=== PATIENT | female | born 1950 | race Caucasian/White ===

== ENCOUNTER → 2019-05-12 | Outpatient (CLI) | payer OTHER, SELFPAY ==
--- NOTE | 2019-05-12 13:30 | SP.MBSS_ITS ---
PRIMARY / SECONDARY DIAGNOSIS: dysphagia (R13.12) REFERRING PHYSICIAN: Dr. Matthieu Hansen MD CURRENT DIET: regular-soft textures, thin liquids DENTITION: WFL MENTAL STATUS: WNL RESPIRATORY STATUS: O2 via room air REASON FOR REFERRAL: The Patient is a 69 year old female referred for a modified barium swallow (MBS) study to objectively assess the Patients oropharyngeal swallow function under fluoroscopy secondary to the diagnosis of progressive bulbar palsy / amyotrophic lateral sclerosis. MEDICAL HISTORY: Amyotrophic lateral sclerosis / progressive bulbar palsy, recurrent urinary tract infections, gastroesophageal reflux disease, seasonal allergies. PREVIOUS MODIFIED BARIUM SWALLOW STUDY: None. ASSESSMENT PARAMETERS: The Patient participated in a Modified Barium Swallow (MBS) study on 05/12/2019. Dr. Garza was the radiologist present for this evaluation. This study was recorded in the lateral view and images were sent to PACs for storage. Scoring was completed through each trial using the 8-point Penetration-Aspiration Scale (PAS), and summarized via the Modified Barium Swallow Impairment Profile (MBSImP) and the Bolus Residue Scale (BRS), with severity scoring through the Dysphagia Severity Rating Scale (DSRS), the Swallowing Performance Scale (PSP), and the Austyn ALS Severity Scale (ALSSS), and recommended diet textures through the International Dysphagia Diet Standardisation Initiative (IDDSI). RESULTS OF THE EVALUATION: The Patient presents with mild oropharyngeal dysphagia (DSRS: 2; SPS: 3; ALSSS: 6-7) secondary to the diagnosis of amyotrophic lateral sclerosis. OBJECTIVE ASSESSMENT OF SWALLOW FUNCTION (QUANTITATIVE ? PER TRIAL): PENETRATION / ASPIRATION SCALE (HYATT): 1 = does not enter airway 2 = enters airway/above vocal folds/ejected 3 = enters airway/above vocal folds/not ejected 4 = enters airway/contacts vocal folds/ejected 5 = enters airway/contacts vocal folds/not ejected 6 = enters airway/below vocal folds/ejected 7 = enters airway/below vocal folds/not ejected despite effort 8 = enters airway/below vocal folds/no effort PENETRATION / ASPIRATION SCALE (SCORE): Thin liquids via cup (single sip): 1 Thin liquids via cup (single sip): 1 Thin liquids via cup (single sip): 1 Thin liquids via cup (sequential swallows): 1 Pudding via spoon: 1 Regular textured cookie: 1 Thin liquids via straw (single sip): 1 Thin liquids via straw (single sip): 1 Thin liquids via straw (sequential swallows): 1 OBJECTIVE ASSESSMENT OF SWALLOW FUNCTION (QUANTITATIVE ? AGGREGATE): MODIFIED BARIUM SWALLOW IMPAIRMENT PROFILE (MBSImP) LABIAL SEAL: 0 (of 4) no labial escape TONGUE CONTROL: 0 (of 3) cohesive bolus BOLUS PREPARATION / MASTICATION: 1 (of 3) slow prolonged; complete recollection BOLUS TRANSPORT / LINGUAL MOTION: 0 (of 4) brisk tongue motion ORAL RESIDUE: 2 (of 4) residue collection on oral structures INITIATION OF PHARYNGEAL SWALLOW: 1 (of 4) valleculae SOFT PALATE ELEVATION: 1 (of 4) trace column between soft palate & pharyngeal wall LARYNGEAL ELEVATION: 1 (of 3) partial superior movement / approximation ANTERIOR HYOID EXCURSION: 1 (of 2) partial movement EPIGLOTTIC MOVEMENT: 0 (of 2) complete inversion LARYNGEAL VESTIBULE CLOSURE: 0 (of 2) complete closure PHARYNGEAL STRIPPING WAVE: 1 (of 2) present / diminished PE SEGMENT OPENIN (of 3) partial distension / duration / obstruction TONGUE BASE RETRACTION: 2 (of 4) narrow column of contrast PHARYNGEAL RESIDUE: 1 (of 4) trace residue ESOPHAGEAL BOLUS CLEARANCE: could not view BOLUS RESIDUE SCALE (BRS): 2 (of 6) residue in valleculae DYSPHAGIA SEVERITY RATING SCALE (DSRS): 2 (mild) SWALLOWING PERFORMANCE SCALE (SPS): 3 (mild) AUSTYN ALS SEVERITY SCALE (ALSSS): 6-7 (of 10) OBJECTIVE ASSESSMENT OF SWALLOW FUNCTION (QUALITATIVE): ORAL PREPARATORY PHASE: mild (albeit effective) mastication inefficiency with prolonged mastication; sufficient anterior oral containment during presentation / manipulation (contrast present due to clinician during presentation); preserved management of breathing / bolus formation without disrupted E ? S ? E pattern. ORAL TRANSITIONAL PHASE: fragmented swallowing (piecemeal deglutition), no additional transitional incompetence; suboptimal oral clearance with thicker viscosities without side specific consolidation; sufficient oral containment across textures; PHARYNGEAL PHASE: no clinically significant signs of pharyngeal dyssynchrony; sufficient hyolaryngeal excursion; no signs of pharyngeal dysmotility; mild velopharyngeal insufficiency without nasoregurgitation. ESOPHAGEAL PHASE: no obvious esophageal phase abnormalities observed. DYSPHAGIA ASSOCIATED MEDICAL CONSIDERATIONS / INTERVENTION CONSIDERATIONS: Would consider scheduled repeat objective assessments of the oropharyngeal swallow function under fluoroscopy (~ 6 month intervals) to identify changes in the oropharyngeal swallow function associated with amyotrophic lateral sclerosis due to the rapid progressive nature of the disease and its damaging effects to the swallow mechanism, with a higher proclivity for silent aspiration. Would consider the Patient to be at a higher risk of aspiration related medical complications / aspiration pneumonia / aspiration related pulmonary syndrome secondary to the diagnosis of amyotrophic lateral sclerosis. At this time, I would also counter that you could consider the Patient to be at lower risk of aspiration related medical complications secondary to her excellent oral hygiene, overall awareness with all deficits self-reported, and currently maintained ambulatory status. As the disease progresses, the Patient would be considered to be a high risk for malnutrition and dehydration due to anticipated oral and eventual pharyngeal phase impairments resulting in continued reduced rate of intake, poor oral control and concomitant anterior fluid loss, in combination with anticipated fatiguing of the swallow structures during intake. The Patient may require intervention to reduce the risk of malnutrition, with considerations for food enrichment, more frequent meals (to combat the fatigue affect typically identified with amyotrophic lateral sclerosis) oral nutritional supplementation, and will eventually need to consider alternative means of nutrition. Would strongly consider a referral to a registered clinical dietitian early in the disease process. INTERVENTION RECOMMENDATIONS AND CONSIDERATIONS: The Patient requires continued skilled speech-language intervention targeting diet texture management and training / implementation of recommended compensatory strategies; and Patient / caregiver education regarding dysphagia associated with amyotrophic lateral sclerosis. POST ASSESSMENT EDUCATION: Results and recommendations were discussed with the Patient and Patients family immediately following MBS completion, with the Patient and Patients family verbalizing understanding and agreement with all recommendations and education provided. We discussed factors impacting effects of aspiration, to include: the quantity of aspiration, the depth of aspiration (trachea or distal airways), and the physical properties of the aspirate. We discussed consequences of oropharyngeal dysphagia, to include pulmonary complications from tracheobronchial aspiration; potential for airway obstruction / asphyxiation; inadequate oral intake because of dysphagia; reduced liquid intake resulting in dehydration; reduced caloric intake resulting in unintentional and potentially medically complicating loss of weight; possible impairment in mental and physical condition; and possible complications in overall course of care with increased risk for mortality / . We discussed benefits and risks associated with alternative means of nutrition, with increased access to caloric supplementation and reduce hydration deficits, in addition to possible reduction in stress associated with mealtimes; though gastrostomy feeding does not significantly reduce aspiration risk and may lead to reduced quality of life, disrupted sleep patterns, and stoma site infections. I provided brief overview of signs and symptoms of aspiration, with recommendations for the Patient to further discuss symptoms with this clinician, and / or the Patients medical team / primary care provider. DIET TEXTURE RECOMMENDATIONS: Will recommend a regular ? soft textured (IDDSI: 6), thin liquid diet (IDDSI: 0) diet RECOMMENDED COMPENSATORY STRATEGIES: Consider cutting tougher textures into bite sized pieces, reduced bolus volume / rate of ingestion, liquid chaser at reasonable intervals, seated upright at 90 degrees during PO intake, remain upright for 30-60 minutes post meal (GERD precaution), medications one at a time with a liquid chaser. IMAGE COUNT: [id number] Reese aSndoval M.A., CCC-AGRICULTURE SCIENTIST MBSImP Certified, LSVT Certified [facility] Speech-Language Pathology Department [email or web address]
--- NOTE | 2019-05-12 13:33 | RAD_ITS ---
STUDY: SWALLOWING STUDY REASON FOR EXAM: Female, 69 years old. Dysphagia TECHNIQUE: The examination was performed with Speech Pathology in attendance. Under fluoroscopic observation, the patient ingested thin barium, thick barium, barium pudding, and barium coated cracker. FLUOROSCOPY TIME: 1:50 minutes/seconds RADIOLOGIST INVOLVEMENT: Radiologist was present during the procedure, and did review the images. COMPARISON: None. FINDINGS: The following was observed during swallowing of the various mixtures of barium: Thin Barium: There was no evidence of aspiration or laryngeal penetration. Thick Barium: There was no evidence of aspiration or laryngeal penetration. Barium Pudding: There was no evidence of aspiration or laryngeal penetration. Barium Coated Cracker: There was no evidence of aspiration or laryngeal penetration. RAD/Swallowing Function w/Video IMPRESSION: Normal tailored barium swallow study. No evidence of increased risk for aspiration. The swallow study findings were discussed with the patient by the speech pathologist at the conclusion of the examination. Please see speech pathology report for more information and recommendations. The procedure was performed by Reese Rivera speech therapist. Electronically Signed: Juan Garza MD at 14:35 EDT , Service support ,
== END | disposition home or self-care (01) ==
LOC: RAD 13:10
PROVIDERS: Family Provider Family Medicine; PCP Family Medicine; Referring Provider Psychiatry & Neurology Neurology; Visit Provider Psychiatry & Neurology Neurology
DX: R47.1 Dysarthria and anarthria (principal); R13.10 Dysphagia, unspecified
CPT/HCPCS: 74230; 92611

== ENCOUNTER 2019-09-21 10:00 | Outpatient (RCR) | payer MEDICARE, OTHER, SELFPAY ==
--- NOTE | 2019-04-06 09:00 | SOAP_ITS ---
REASON FOR REFERRAL: The Patient is a 69 year old female referred for a clinical assessment of the swallow function and communication profile at [facility] on 04/06/[address] Matthieu Hansen due to progressive bulbar palsy / amyotrophic lateral sclerosis. The Patient reports initial symptom onset occurring last August (2017), with noted unexplained dysarthria, with official diagnosis towards the latter portions of last month (February 2019). The Patient reports occasional coughing during ingestion, particularly with thin liquids. She additionally reports concern with ingestion of solid textures, and self imposes reduced bolus volumes to combat this concern. She further reports fatigue with intake (inanition), with uptake in symptomology towards the latter portions of meals (not uncommon with the diagnosis). She reports a gradual unintentional weight loss (though unsure as to amount), though no changes in appetite or early satiety; no nausea or emesis; no percutaneous endoscopic gastrostomy (PEG) tube placement to date. She denies trismus or odynophagia. She reports mild xerostomia in addition to mild diurnal sialorrhea (SSS:2) that has been increasing in regards to frequency. She denies any dysgeusia / hypogeusia / ageusia or hyposmia. She denies issues with globus sensation, reflux, or substernal discomfort. She denies suboptimal intake behaviors (tachyphagia, bolus bolting, or aerophagia). She denies any current or previous issues with aspiration related pulmonary complications, to include pneumonia, bronchitis, or unexplained asthma symptoms. 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 MEDICAL HISTORY: Amyotrophic lateral sclerosis / progressive bulbar palsy, recurrent urinary tract infections, gastroesophageal reflux disease, seasonal allergies, PREVIOUS MODIFIED BARIUM SWALLOW STUDY: None. ORAL MOTOR / MODIFIED CRANIAL NERVE ASSESSMENT: CNV, VII, IX, X, and XII grossly intact. Natural upper / lower dentition in sufficient repair. Mild xerostomia; occasional diurnal sialorrhea (SSS: 2). Impaired cough intensity (dystussia). No signs or symptoms of trismus. Reduced rate of speech with mild to moderate dysarthria. FUNCTIONAL STATUS ASSESSMENT RESULTS: Karnofsky Performance Scale Index: 6/6 (independent) [place] ? [facility] Instrumental Activities of Daily Living Scale (IADL): 8/8 (independent) Patient Health Questionnaire (PHQ-9): 6 (indicating mild risk of depression) SUPPLEMENTARY DYSPHAGIA ASSESSMENT RESULTS (QUANTITATIVE): Eating Assessment Tool ? 10 (EAT-10): 16 (>15 or higher 2.4x more likely to aspirate) Reflux Symptom Index (RSI): 25 (>13 may be indicative of significant reflux) Sialorrhea Scoring Scale (SSS): 2/9 (mild, only the lips are wet, occasionally) CLINICAL ASSESSMENT OF SWALLOW FUNCTION (QUANTITATIVE): Repetitive Saliva Swallowing Test (RSST): Pass; > 2 dry swallows within 30 seconds. Modified Water Swallowing Test (MWST): Normal - 5 (of 5) 1oz (30mL) Water Swallowing Test (1oz WST): Normal ? 1 (of 5) 3oz (90mL) Water Swallow Test (3oz WST): Abnormal; Coughing after deglutition Kruger Assessment of Swallowing Ability (MASA): 163 (moderate) MASA Aspiration Severity Score: 163 (mild) MASA Dysphagia Risk Rating: Definite; strong evidence for disorder Swallowing Performance Scale (PSP): 5 (moderate) CLINICAL ASSESSMENT OF SWALLOW FUNCTION (QUALITATIVE): ORAL PREPARATORY PHASE: competent bolus manipulation without fragmented swallowing (piecemeal deglutition), though self-imposed reduction in bolus volume; sufficient anterior oral containment; preserved management of breathing / bolus formation without disrupted E ? S ? E pattern. ORAL TRANSITIONAL PHASE: reduced rate of bolus manipulation / transportation without tremor / undulations; suboptimal oral clearance without side specific consolidation; no signs or symptoms of premature posterior bolus loss. PHARYNGEAL PHASE: reduced hyolaryngeal excursion upon digital palpation suggestive of suboptimal laryngeal vestibule closure / pressure; consistent prominent audible swallow suggestive of pharyngeal swallow delay / dyssynchrony; no subjective signs of pharyngeal dysmotility; mild hypernasality that may suggest velopharyngeal insufficiency; post prandial coughing / throat clearing indicative of overt aspiration during trials of thin liquids (one occasion; approximately 20 seconds post deglutition). ESOPHAGEAL PHASE: esophageal phase appears unremarkable, though high RSI score reported (25) COGNITIVE COMMUNICATION ASSESSMENT RESULTS: Quick Aphasia Battery (QAB): Motor speech features: Dysarthria: 2 (moderate) Apraxia of Speech: 4 (normal) Aphasia Severity Rating Scale (ASRS): 5 (Minimal; may have subjective difficulties) Apraxia of Speech Rating Scale (ASRS-v1): 0 (not present) COGNITIVE LINGUISTIC FUNCTIONING: moderate dysarthria with mild hypernasality; no aphasia, apraxia, anomia, agraphia, or alexia noted. Mild bradyphrenia and attention deficits. Otherwise unremarkable. RESULTS OF THE EVALUATION: Clinical dysphagia evaluation completed this date, with the Patient presenting with moderate oropharyngeal dysphagia in combination with moderate dysarthria secondary to the diagnosis of amyotrophic lateral sclerosis. RECOMMENDATIONS: I cannot definitively rule out silent aspiration at bedside, with the Patient considered to be at a much higher risk of silent aspiration across all consistencies given the diagnosis and progression of amyotrophic lateral sclerosis. The Patient requires further assessment of the oropharyngeal swallow function under fluoroscopy given the etiology of cause, and very high likelihood for pharyngeal and nasopharyngeal based deficits. This will additionally provide an excellent opportunity for biofeedback through the images obtained to further educate the Patient and family as to the extent of deficits she is experiencing. The Patient requires intensive skilled speech- language intervention targeting diet texture management and training / implementation of recommended compensatory strategies; training and implementation of a home oral care protocol to reduce the effects of xerostomia and improve / maintain the integrity of the oral mucosa reducing the risk of aspiration related pulmonary complications; training, implementation, and Patient / caregiver education regarding implementation of the Roberts Free Water Protocol (FFWP); Patient education regarding amyotrophic lateral sclerosis and associated dysphagia and dysarthria; Patient and caregiver training targeting meal preparation / thickened liquid preparation; Patient education and training regarding use of AAC communication devices; Patient education regarding expressive communication strategies to promote improved speech intelligibility (guarded prognosis); with goal adjustment pending MBS completion. I discussed factors impacting effects of aspiration, to include the quantity of aspiration, the depth of aspiration (trachea or distal airways), and the physical properties of the aspirate. We discussed the potential consequences of oropharyngeal dysphagia, to include pulmonary complications from tracheobronchial aspiration; potential for airway obstruction / asphyxiation; potential and currently experienced inadequate oral intake because of dysphagia; reduced liquid intake resulting in dehydration; reduced caloric intake resulting in unintentional and potentially medically complicating loss of weight; impairment in mental and physical condition, and increased risk for mortality / . We discussed potential complicating factors with nutritional management and dysphagia, and discussed that decisions to commence enteral tube feeding should be carefully balanced against the individual?s known wishes and impact on his / her quality of life. We discussed the benefits and risks associated with alternative means of nutrition, with increased access to caloric supplementation and reduce hydration deficits, in addition to possible reduction in stress associated with mealtimes, though gastrostomy feeding does not significantly reduce aspiration risk and may lead to reduced quality of life. DIET TEXTURE RECOMMENDATIONS: Will recommend a regular ? soft textured (IDDSI: 6), thin liquid diet (IDDSI: 0) diet RECOMMENDED COMPENSATORY STRATEGIES: Reduced bolus volume / rate of ingestion, seated upright at 90 degrees during PO intake, remain upright for 30-60 minutes post meal (GERD precaution), medications one at a time with a liquid chaser. FUNCTIONAL OUTCOMES: OUTCOME 1: the Patient will tolerate the least restrictive means of nutrition to facilitate adequate hydration / nutrition with optimum safety and efficiency of swallowing function during P.O. intake without overt signs and symptoms of aspiration. OUTCOME 2: the Patient will demonstrate and utilize recommended compensatory swallowing techniques to facilitate improved airway protection and decreased risk for aspiration during PO intake. OUTCOME 3: the Patient will participate in a Modified Barium Swallow (MBS) study to objectively assess the Patient?s oropharyngeal swallowing function, to determine the least restrictive means of nutrition, to objectively assess the effectiveness of previously identified strategies / precautions, and to identify appropriate intervention approaches / strategies to implement during treatment sessions at the supervised level. OUTCOME 4: the Patient will independently demonstrate and utilize recommended compensatory articulation techniques (increased vocal intensity, reduced rate of speech) to facilitate increased expressive communication abilities in the home and social environments. OUTCOME 5: the Patient will participate in continual assessment of the communication profile to determine the appropriateness for alternative and augmentative communication device implementation at the supervised level OUTCOME 6: goal adjustment as needed post MBS Reese Sandoval M.A., CCC-PROGRAMMER OR ANALYST MBSImP Certified, LSVT Certified [facility] Speech-Language Pathology Department [email or web address]
--- NOTE | 2019-04-19 10:58 | HP.PTEVAL ---
Patient's Visit Information MERYL CARRIZALES is a 69 year old F referred to Physical Therapy by Matthieu Hansen MD with a diagnosis of BUlbar palsy. Date of Evaluation: 03/30/19 Physical Therapist: Dave Foster DPT - Visit Plan Frequency: 1-2x /Week Duration: 4-6 Weeks Plan: Start with BUE and BLUE strengthneing. Add in core stability exercises and endruance progressing including walking program. Add in balance training with progression fo HEP. - Subjective Findings: Pt. is here today for her initial evaluation with diagnosis of upper and lower extremity weakness with recent diagnosis of bulbar palsy. Pt. reports over the past few months noticing increased weakness in both upper and lower extermities. Pt. denies N/T in extremities x4. Pt. jerome reports chronic fatigue now. She walks without AD, but reports being able to ambulate limited distaces secondary to fatigue. Pt. is also having increased difficulty with speech and swallowing. Pt. is to have a swallow study as well. Pt. denies pain. Pt. is hopeful to get an exercise program to increase overall strength in order to stay mobility and increase tolerance to activities. - Objective POSTURE: Pt. has overall slouched posture. Pt. has FH posture. With BERNADETTE noted instance. PALPATION: Pt. has no pain with palption of BLEs and UEs. NEURO: Pt. has normal sensation and DTR of BUE and BLEs. ROM: pt. has good ROM throughout bilateral UEs and LEs, decreased active overhead shoulder ROM, secondary to increased weakness. Pt. has full ROM of Bilatearl LEs. Tight HS and hip flexors bilaterally. MMT: BLES- 4/5 throughout; except hip flexion 4-/5, abd 3+/5, ext 4/5. UE- wrist and elbow- 4+/5 throghout; shoulder- flexion 4/5, abd 4/5, ext 4+/5. GAIT: Pt. is able to ambulate without AD, but has increased fatigue after ~500ft. Pt. required sitting rest break. pt. has increased lateral sway without LOB. - Balance Scores Functional Gait Assessment Score: 21 % Disability: 30.0000 - Goals Goal 1:: Pt. to be I with HEP. Goal Time Frame: 4-6 Weeks Goal 2:: Pt. to have increased UE strength by 1/2 grade. Goal Time Frame: 4-6 Weeks Goal 3:: Pt. to have incerased BLE strength and core strength by 1/2 grade. Goal Time Frame: 4-6 Weeks Goal 4:: Pt. to have increased endurance with walking upto 1000' allowing for increasd tolerance to ambulation in grocery stores. Goal Time Frame: 4-6 Weeks Goal 5:: Pt. to complete all ADLs with out increase in symptoms and increased tolerance. Goal Time Frame: 4-6 Weeks Goal 6:: Pt. to have increased FGA to 23/30 indicating reduce risk for future falls. Goal Time Frame: 4-6 Weeks - Rehabilitation Potential Physical Therapy Diagnosis: Pt. has signs and symptoms consistent with bulbar palsy and marked UE and LE weakness. Pt. would benefit from PT to increase extremity and core strength, stability with gait. Rehabilitation Potential: Good - Anticipated Interventions Patient/Client Instruction: Educate patient on: Condition, Plan of Care, Risk Factors, Benefits of Fitness Program For the Purpose of:: To improve decision making, To facilitate caregiver knowledge, To improve self management, To prevent re-injury, To improve ability to perform tasks related to life management, To improve tolerance to ADL's Therapeutic Exercise to Include: Strength training, Power training, Endurance training, Balance training, Body mechanics, Postural training, Flexibilty training, Dynamic Lumbar Stabilization For the Purpose of:: To improve nutrient delivery to tissue, To increase oxygenation perfusion, To increase tolerance to activity/condition/position, To improve performance and independence with ADL's, To improve ability of physical actions for home/community/work/leisure, To improve gait and locomotor functions, To improve health of tissue, To decrease soft tissue restriction, To increase flexibility/ROM, To improve endurance, To improve balance Thank you for the opportunity to evaluate your patient. For Medicare and Medicare HMO plans, please review the plan of care and approve it. It will need to be FAXED BACK to us at [phone] for Medicare purposes. For Medicare only, by signing this I certify the plan of care. Please let me know if there are questions or concerns regarding this plan of care. Physician Signature: Date:
--- NOTE | 2019-05-08 14:05 | HP.PTREVAL ---
Matthieu Hansen MD, It has been my pleasure to treat MERYL CARRIZALES over the last 8 visits for Bulbar palsy. Please see the progress note below for an update on the physical therapy plan of care! Subjective: Pt. contines to slowly progress with PT. With both UE and LE strengthening. Pt. reports continued fatigue, but is slowly progressing. Pt. reports no pain pre treatment this date. Objective/Function: Pt. tolerated all PT this date. ROM- normal throughout. MMT: UE 4+/5 throughout, except shoulder abd and flexion 4/5, pt. has increased difficutly with over head motions. BLE 4+/5 throughout. GAIT: Pt. has improved stability with ambulatuion. Pt. was able to ambulate 750' without AD. Pt. reports increased fatigue towards end of walking, butother than that no issues. FGA Plan Plan: Pt. would benefit from continued PT, weaning more to indepenent HEP as tolerated. x1-2 per week for 2-3 weeks. Cont to focus on UE and LE strengthening wtih balance and endurance components. Goals Goal 1:: Pt. to be I with HEP. Goal Time Frame: 4-6 Weeks Goal Progress: Progressing Goal 2:: Pt. to have increased UE strength by 1/2 grade. Goal Time Frame: 4-6 Weeks Goal Progress: Progressing Goal 3:: Pt. to have incerased BLE strength and core strength by 1/2 grade. Goal Time Frame: 4-6 Weeks Goal Progress: Progressing Goal 4:: Pt. to have increased endurance with walking upto 1000' allowing for increasd tolerance to ambulation in grocery stores. Goal Time Frame: 4-6 Weeks Goal Progress: Progressing Goal 5:: Pt. to complete all ADLs with out increase in symptoms and increased tolerance. Goal Time Frame: 4-6 Weeks Goal Progress: Progressing Goal 6:: Pt. to have increased FGA to indicating reduce risk for future falls. Goal Time Frame: 4-6 Weeks Goal Progress: Progressing Anticipated Interventions Patient/Client Instruction: Educate patient on: Condition, Plan of Care, Risk Factors, Benefits of Fitness Program For the Purpose of:: To improve decision making, To facilitate caregiver knowledge, To improve self management, To prevent re-injury, To improve ability to perform tasks related to life management, To improve tolerance to ADL's Therapeutic Exercise to Include: Strength training, Power training, Endurance training, Balance training, Body mechanics, Postural training, Flexibilty training, Dynamic Lumbar Stabilization For the Purpose of:: To improve nutrient delivery to tissue, To increase oxygenation perfusion, To increase tolerance to activity/condition/position, To improve performance and independence with ADL's, To improve ability of physical actions for home/community/work/leisure, To improve gait and locomotor functions, To improve health of tissue, To decrease soft tissue restriction, To increase flexibility/ROM, To improve endurance, To improve balance Please do not hesitate to contact me at [phone] by phone or if you have questions or concerns regarding this new plan of care! Sincerely, Dave Foster DPT
--- NOTE | 2019-08-03 10:00 | RE_ITS ---
REASON FOR REFERRAL: The Patient is a 69 year old female referred for a clinical assessment of the swallow function and communication profile at [facility] on 04/06/[address] Matthieu Hansen due to progressive bulbar palsy / amyotrophic lateral sclerosis. The Patient has participated in 10 skilled speech-language intervention sessions from 04/06/2019 to 08/03/2019 primarily targeting diet texture management and training / implementation of recommended compensatory strategies; training and implementation of a home oral care protocol to reduce the effects of xerostomia and improve / maintain the integrity of the oral mucosa reducing the risk of aspiration related pulmonary complications; Patient education regarding amyotrophic lateral sclerosis and associated dysphagia and dysarthria; and Patient education regarding expressive communication strategies to promote improved speech intelligibility (guarded prognosis). The Patient reports continued occasional coughing during ingestion, particularly with thin liquids, though this has been somewhat mitigated with ingestion via narrow boar straw and slight chin tuck posture / anterior lean execution. She reports a continual decline in mastication efficiency (prolonged) and bolus transfer (states solids and semisolids will occasionally ?sit? at the back of her tongue) in addition to continually evolving fatigue with intake (inanition). She reports a gradual unintentional weight loss (though no more than 5lbs over the last month), with a gradually decrease in appetite; no nausea or emesis; no percutaneous endoscopic gastrostomy (PEG) tube placement to date, though is aware that this may need to be addressed in the near future. She has noticed a continual decline in speech intelligibility, with her and other familiar communication partners needing to ask her for repetition at a more consistent basis. At this point, she remains independent for the majority of ADLs and IADLs, completing all though completion has been gradually becoming more and more difficult, and is consulting with a home care agency ([facility]) to provide further assistance in addition to that provided by her . She has experienced multiple falls over the past few months, and now requires use of an assistive device (walking cane) to ambulate, though can ambulate level surfaces at a functional level (able to ambulate the entirety of [facility]). MEDICAL HISTORY: Amyotrophic lateral sclerosis / progressive bulbar palsy, recurrent urinary tract infections, gastroesophageal reflux disease, seasonal allergies, PREVIOUS MODIFIED BARIUM SWALLOW STUDY: 05/12/2019 MBS revealed mild oropharyngeal dysphagia (DSRS: 2; SPS: 3; ALSSS: 6-7) secondary to the diagnosis of amyotrophic lateral sclerosis. ORAL MOTOR / MODIFIED CRANIAL NERVE ASSESSMENT: CNV, VII, IX, X, and XII appear grossly intact, though rather diminished. She denies hypoesthesia. Natural upper / lower dentition in good repair. Atrophic appearance to the lingual blade with a small abrasion along the right anterior blade (reports she has been biting her tongue quite frequently); She appears to have developed oral candidiasis along the lingual blade, she is to follow up with her physician during her upcoming follow up appointment (08/07/2019); mild xerostomia; occasional diurnal sialorrhea (SSS: 4) with intermittent coughing / throat clearing on oral secretions suggesting aspiration of said secretions. Impaired cough intensity (dystussia); no signs or symptoms of trismus; reduced rate of speech with moderate to marked dysarthria with hypernasality and developing hypophonia. FUNCTIONAL STATUS ASSESSMENT RESULTS: Kamara Index of [place] in Activities of Daily Livin/6 Bathin Dressin Toiletin Transferrin Continence: 1 Feedin Melida ? [place] Instrumental Activities of Daily Living Scale (IADL): 7/8 Ability to Use Telephone: 1 Shoppin Food Preparation: 1 Housekeepin Laundry: 0 Mode of Transportation: 1 Responsibility for Own Medications: 1 Ability to Handle Finances: 1 Functional Ambulation Category (FAC): 4 (independent - level surfaces only) SUPPLEMENTARY DYSPHAGIA ASSESSMENT RESULTS (QUANTITATIVE): Eating Assessment Tool ? 10 (EAT-10): 27 (> 15 suggests 2.4x more likely to aspirate) Reflux Symptom Index (RSI): 32 (>13 may be indicative of significant reflux) Sialorrhea Scoring Scale (SSS): 4/9 (moderate, wet on the lips and chin, occasionally) CLINICAL ASSESSMENT OF SWALLOW FUNCTION (QUANTITATIVE): Repetitive Saliva Swallowing Test (RSST): Pass; > 2 dry swallows within 30 seconds. 1oz (30mL) Water Swallowing Test (1oz WST): Heightened suspicion ? 2 (of 5) 3oz (90mL) Water Swallow Test (3oz WST): Abnormal; Coughing after deglutition Kruger Assessment of Swallowing Ability (MASA): 157 (moderate) MASA Aspiration Severity Score: 157 (mild) MASA Dysphagia Risk Rating: Definite; strong evidence for disorder Swallowing Performance Scale (PSP): 5 (moderate) CLINICAL ASSESSMENT OF SWALLOW FUNCTION (QUALITATIVE): ORAL PREPARATORY PHASE: mild (albeit effective) mastication impairments with prolonged mastication; impaired anterior bolus containment with intermittent anterior bolus loss with thin liquid ingestion via cup; preserved management of breathing / bolus formation without disrupted E ? S ? E pattern. ORAL TRANSITIONAL PHASE: slowed bolus manipulation / transportation with occasional fragmented swallowing (piecemeal deglutition); mild to moderate diffuse oral residue post deglutition with sufficient oral clearance following liquid chaser; no signs or symptoms of premature posterior bolus loss. PHARYNGEAL PHASE: mild reduction in hyolaryngeal excursion and duration upon digital palpation possibly suggestive of suboptimal laryngeal vestibule closure / pressure / duration; intermittent / prominent audible swallow possibly suggestive of pharyngeal swallow delay / dyssynchrony; occasional multiple swallows during trials of smaller / rather manageable bolus volumes suggestive of pharyngeal dysmotility; hypernasality suggestive of velopharyngeal insufficiency without nasoregurgitation; post prandial coughing / throat clearing indicative of overt aspiration during trials of thin liquids and nectar thickened liquids (somewhat ameliorated with ingestion via straw with slight anterior lean); no further signs or symptoms of penetration / aspiration throughout trials. ESOPHAGEAL PHASE: esophageal phase appears unremarkable though noted high and progressively increasing RSI score reported (32) COMPLICATING FACTORS AND NOTABLE FINDINGS: complicating factors include the Patients continued decline in regards to intake endurance, with meals currently limited to ~20-25 minutes (this is more limiting when considering the reduced rate of mastication / ingestion she has demonstrated and reported). COGNITIVE COMMUNICATION ASSESSMENT RESULTS: COGNITIVE LINGUISTIC FUNCTIONING: moderate to marked dysarthria with mild hypernasality and increasing presence of hypophonia; no aphasia, apraxia, anomia, agraphia, or alexia noted. Mild bradyphrenia and attention deficits. Otherwise unremarkable. RESULTS OF THE EVALUATION: The Patient continues to present with moderate oropharyngeal dysphagia in combination with moderate to marked dysarthria secondary to the diagnosis of amyotrophic lateral sclerosis. DYSPHAGIA ASSOCIATED MEDICAL CONSIDERATIONS / INTERVENTION CONSIDERATIONS: The Patient will likely require a repeat assessment of the oropharyngeal swallow function under fluoroscopy within the next 2-3 months given the etiology of cause, and very high likelihood of increased pharyngeal and nasopharyngeal based deficits that require objective imaging to fully quantify and develop an effective remedial plan. She is further nearing the point in which we will need to explore transitioning to an augmented approach to communication, as her current communication efficiency is fleeting. INTERVENTION RECOMMENDATIONS: The Patient requires continued intensive skilled speech-language intervention targeting diet texture management and training / implementation of recommended compensatory strategies; training and implementation of a home oral care protocol to reduce the effects of xerostomia and improve / maintain the integrity of the oral mucosa reducing the risk of aspiration related pulmonary complications; training, implementation, and Patient / caregiver education regarding implementation of the [place] Free Water Protocol (FFWP); Patient education regarding amyotrophic lateral sclerosis and associated dysphagia and dysarthria; Patient and caregiver training targeting meal preparation / thickened liquid preparation; Patient education and training regarding use of AAC communication devices; Patient education regarding expressive communication strategies to promote improved speech intelligibility (guarded prognosis); with goal adjustment pending repeat MBS completion. DIET TEXTURE RECOMMENDATIONS: Will recommend a regular ? soft textured (IDDSI: 6), thin liquid diet (IDDSI: 0) diet RECOMMENDED COMPENSATORY STRATEGIES: Chin tuck via narrow boar straw, reduced bolus volume / rate of ingestion, seated upright at 90 degrees / slight anterior lean during PO intake, remain upright for 30-60 minutes post meal (GERD precaution), medications one at a time with purees. FUNCTIONAL OUTCOMES: OUTCOME 1: the Patient will tolerate the least restrictive means of nutrition to facilitate adequate hydration / nutrition with optimum safety and efficiency of swallowing function during P.O. intake without overt signs and symptoms of aspiration. OUTCOME 2: the Patient will demonstrate and utilize recommended compensatory swallowing techniques to facilitate improved airway protection and decreased risk for aspiration during PO intake. OUTCOME 3: the Patient will participate in a repeat Modified Barium Swallow (MBS) study to objectively assess the Patient?s oropharyngeal swallowing function, to determine the least restrictive means of nutrition, to objectively assess the effectiveness of previously identified strategies / precautions, and to identify appropriate intervention approaches / strategies to implement during treatment sessions at the supervised level. OUTCOME 4: the Patient will independently demonstrate and utilize recommended compensatory articulation techniques (increased vocal intensity, reduced rate of speech) to facilitate increased expressive communication abilities in the home and social environments. OUTCOME 5: the Patient will participate in continual assessment of the communication profile to determine the appropriateness for alternative and augmentative communication device implementation at the supervised level OUTCOME 6: the Patient will independently demonstrate and utilize alternative and augmentative communication techniques and devices (both low tech and high tech) to facilitate increased expressive communication abilities in the home and social environments. OUTCOME 7: goal adjustment as needed post repeat MBS Reese Sandoval M.A., CCC-MEDICAL STAFF SERVICES COORDINATOR, CBIS MBSImP Certified, LSVT Certified [facility] Speech-Language Pathology Department [email or web address]
--- NOTE | 2019-11-10 12:07 | HP.SP.DC_ITS ---
ST Discharge Summary - Discharged: Discharge: The Patient is a 69 year old female who attended 10 skilled speech-language intervention sessions spanning from 04/06/2019 to 09/21/2019 targeting cognitive communication abilities due to moderate oropharyngeal dysphagia in combination with moderate dysarthria secondary to the diagnosis of progressive bulbar palsy / amyotrophic lateral sclerosis. The Patient reports initial symptom onset occurring last August (2017). The Patient participated in a 05/12/2019 MBS, which revealed mild oropharyngeal dysphagia (DSRS: 2; SPS: 3; ALSSS: 6-7). The Patient participated in intervention sessions consisting of diet texture management and training / implementation of recommended compensatory strategies; training and implementation of a home oral care protocol to reduce the effects of xerostomia and improve / maintain the integrity of the oral mucosa reducing the risk of aspiration related pulmonary complications; Patient education regarding amyotrophic lateral sclerosis and associated dysphagia and dysarthria; Patient and caregiver training targeting meal preparation / thickened liquid preparation;; Patient education regarding expressive communication strategies to promote improved speech intelligibility; with anticipated intervention shift to Patient education and training regarding use of AAC communication devices. 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 We will discharge from the skilled speech-language pathology caseload at this time, though would gladly re-initiate intervention at this location as needed moving forward.
== END 2019-09-21 19:00 | disposition home or self-care (01) ==
LOC: SP 10:00
PROVIDERS: Family Provider Family Medicine; PCP Family Medicine; Referring Provider Psychiatry & Neurology Neurology; Visit Provider Psychiatry & Neurology Neurology
DX: G12.22 Progressive bulbar palsy (principal); R13.10 Dysphagia, unspecified; R47.1 Dysarthria and anarthria; R53.1 Weakness
CPT/HCPCS: 92507; 92523; 92526; 92610; 97110; 97161; 97530